=== PATIENT | male | born 2000 | race Caucasian/White ===

== ENCOUNTER 2021-11-15 07:23 | Day surgery (SDC) | payer MEDICAID ==
[~2021-11-15] VITALS: Ht 190.5 cm; Wt 124.8 kg
[~2021-11-15 07:23] MED LIST: BUPIVAcaine 0.5% inj/PF 30 ML ONE; NO HOME MEDS; famotidine 20mg tablet PO ONE; ringers solution, lacted 1,000 ML IV SCH
[2021-11-15] MEDS ORDERED: LIDOcaine 1% 30ml preserv. free vial ONE (07:28)
[2021-11-15 07:35] VITALS: BP 122/76
[2021-11-15] MEDS ORDERED: cefazolin/dext.iso 2gm/50ml 50 ML IV ONE (09:12)
[2021-11-15] MEDS ORDERED: famotidine 20mg tablet PO ONE (09:30)
[2021-11-15] MEDS ORDERED: MIDAZolam 1 MG/ML 5ML VIAL ONE (09:35)
[2021-11-15] MEDS ORDERED: fentaNYL/PF 50MCG/1 ML 2ML syringe ONE (09:35)
[2021-11-15] MEDS ORDERED: ketorolac trometh. 30mg/ml inj. ONE (09:36)
[2021-11-15] MEDS ORDERED: BUPIVAcaine 0.5% inj/PF 30 ml vial IJ ONE (10:43)
[2021-11-15 11:03] VITALS: BP 105/45
--- NOTE | 2021-11-15 11:03 | NUR ---
Received from OR via , accompanied by Anesthesiologist DR DUONG and report given by Anesthesiolgist. AWAKENS TO VOICE. VITALS STABLE. DRESSING DI. IRIS PAIN.
[2021-11-15 11:13] VITALS: BP 107/75
[2021-11-15 11:23] VITALS: BP 112/60
--- NOTE | 2021-11-15 11:43 | NUR ---
AWAKE AND ORIENTED. VITALS STABLE. DRESSING DI. IRIS PAIN. HOME WITH HIS DAD AT THIS TIME.
== END 2021-11-15 11:43 | disposition home or self-care (01) ==
LOC: PAS 07:23
PROVIDERS: ATTEND Orthopaedic Surgery Hand Surgery
DX: S62.390A Other fracture of second metacarpal bone, right hand, initial encounter for closed fracture (principal); E66.9 Obesity, unspecified; Z68.34 Body mass index [BMI] 34.0-34.9, adult; Z79.899 Other long term (current) drug therapy; Z79.82 Long term (current) use of aspirin; Z98.890 Other specified postprocedural states; Z20.822 Contact with and (suspected) exposure to COVID-19; X58.XXXA Exposure to other specified factors, initial encounter; Y93.89 Activity, other specified; Y92.89 Other specified places as the place of occurrence of the external cause; Y99.8 Other external cause status
CPT/HCPCS: 26746; 82948; 87635; A6222; C1713; C9803; J1885; J2250; J3010; J3490; J7030; J7120; S0020; Z7506; Z7512; A4215; A4618; A6449; A7000

== ENCOUNTER 2021-11-22 00:39 | Emergency (ER) | payer MEDICAID ==
[~2021-11-22] VITALS: Ht 190.5 cm; Wt 120.5 kg
[~2021-11-22 00:39] MED LIST changes: -BUPIVAcaine 0.5% inj/PF 30 ML ONE; -famotidine 20mg tablet PO ONE; -ringers solution, lacted 1,000 ML IV SCH
[2021-11-22] MEDS ORDERED: piperacillin/tazo 4.5gm/100ml 100 ML IV STA (01:28)
[2021-11-22] MEDS ORDERED: vancomycin/NS 1 GM ADD-VANTAGE 250 ML IV STA (01:28)
[2021-11-22] MEDS ORDERED: ondansetron/PF 4mg/2ml inj IV ONE (01:55)
[2021-11-22] MEDS ORDERED: morphine 4 MG/ML inj SYRINge IV ONE (01:55)
[2021-11-22 02:09] LABS: BASOPHILS % (AUTO) 0.2 % (0-1); EOSINOPHILS # (AUTO) 0.1 X10'3 (0-0.9); EOSINOPHILS % (AUTO) 1.3 % (0-6); HEMATOCRIT 41.5 % (42.0-52.0); HEMOGLOBIN 14.1 g/dl (14.0-17.9); LYMPHOCYTES # (AUTO) 1.5 X10'3 (1.1-4.8); LYMPHOCYTES % (AUTO) 14.9 % (21-51); MEAN CORPUSCULAR HEMOGLOBIN 31.2 PG (27.0-31.0); MEAN CORPUSCULAR HGB CONC 34.1 g/dL (33.0-36.5); MEAN CORPUSCULAR VOLUME 91.7 FL (78-98); MEAN PLATELET VOLUME 7.5 FL (7.4-10.4); MONOCYTES # (AUTO) 0.9 X10'3 (0-0.9); MONOCYTES % (AUTO) 8.7 % (2-12); NEUTROPHILS # (AUTO) 7.4 X10'3 (1.8-7.7); NEUTROPHILS % (AUTO) 74.9 % (42-75); PLATELET COUNT 221 X10'3 (140-440); RED BLOOD COUNT 4.52 X10'6 (4.70-6.10); RED CELL DISTRIBUTION WIDTH 13.2 % (11.5-14.5); WHITE BLOOD COUNT 9.8 X10'3 (4.5-11.0)
[2021-11-22 02:18] LABS: APTT 25 SECONDS (22-32)
[2021-11-22 02:29] LABS: ALBUMIN 3.7 G/DL (3.4-5.0); ANION GAP 8 (8-16); BLOOD UREA NITROGEN 14 MG/DL (7-18); BUN/CREATININE RATIO 13.9 (5.4-32.0); CALCIUM 8.8 MG/DL (8.5-10.1); CHLORIDE 104 MMOL/L (99-107); CREATININE 1.01 MG/DL (0.60-1.10); GLUCOSE 118 MG/DL (70-104); POTASSIUM 4.1 MMOL/L (3.5-5.1); SODIUM 139 MMOL/L (135-145); TOTAL CARBON DIOXIDE 26.7 MMOL/L (24-32); eGFR > 90 ML/MIN
[2021-11-22] MEDS ORDERED: CLIN300C71 PO (03:39)
[2021-11-22 03:51] VITALS: BP 149/70
[2021-11-26] MEDS ORDERED: LINE600T11 PO (15:13)
== END 2021-11-22 04:11 | disposition home or self-care (01) ==
LOC: ER 00:40
DX: G89.18 Other acute postprocedural pain (principal); L03.113 Cellulitis of right upper limb; M79.641 Pain in right hand; L02.511 Cutaneous abscess of right hand; Z98.890 Other specified postprocedural states; Z79.2 Long term (current) use of antibiotics
CPT/HCPCS: 36415; 73130; 80048; 83605; 85025; 85610; 85730; 87040; 87077; 87186; 96365; 96366; 96375; 99291; J2270; J2405; J2543; J3370

== ENCOUNTER 2021-11-23 15:28 | Emergency (ER) | payer MEDICAID ==
[~2021-11-23] VITALS: Ht 190.5 cm; Wt 120.5 kg
[~2021-11-23 15:28] MED LIST changes: +CLIN300C71 PO
[2021-11-23 15:35] VITALS: BP 140/97
--- NOTE | 2021-11-23 16:00 | NUR ---
dr. alvarado at bedside.
[2021-11-23 16:32] LABS: BASOPHILS % (AUTO) 0.3 % (0-1); EOSINOPHILS # (AUTO) 0.1 X10'3 (0-0.9); EOSINOPHILS % (AUTO) 0.8 % (0-6); HEMATOCRIT 44.9 % (42.0-52.0); HEMOGLOBIN 15.8 g/dl (14.0-17.9); LYMPHOCYTES % (AUTO) 14.2 % (21-51); MEAN CORPUSCULAR HEMOGLOBIN 31.9 PG (27.0-31.0); MEAN CORPUSCULAR HGB CONC 35.1 g/dL (33.0-36.5); MEAN CORPUSCULAR VOLUME 90.9 FL (78-98); MEAN PLATELET VOLUME 7.5 FL (7.4-10.4); MONOCYTES # (AUTO) 0.6 X10'3 (0-0.9); MONOCYTES % (AUTO) 7.9 % (2-12); NEUTROPHILS # (AUTO) 5.4 X10'3 (1.8-7.7); NEUTROPHILS % (AUTO) 76.8 % (42-75); PLATELET COUNT 251 X10'3 (140-440); RED BLOOD COUNT 4.94 X10'6 (4.70-6.10); RED CELL DISTRIBUTION WIDTH 13.1 % (11.5-14.5)
[2021-11-23 16:40] LABS: ALANINE AMINOTRANSFERASE 22 U/L (12-78); ALBUMIN 4.3 G/DL (3.4-5.0); ALBUMIN/GLOBULIN RATIO 1.3 (1.1-1.5); ALKALINE PHOSPHATASE 56 IU/L (46-116); ANION GAP 13 (8-16); ASPARTATE AMINO TRANSFERASE 12 U/L (10-37); BILIRUBIN,TOTAL 0.4 MG/DL (0.1-1.0); BLOOD UREA NITROGEN 7 MG/DL (7-18); BUN/CREATININE RATIO 9.2 (5.4-32.0); CALCIUM 9.6 MG/DL (8.5-10.1); CHLORIDE 102 MMOL/L (99-107); CREATININE 0.76 MG/DL (0.60-1.10); GLUCOSE 103 MG/DL (70-104); POTASSIUM 4.1 MMOL/L (3.5-5.1); SODIUM 142 MMOL/L (135-145); TOTAL CARBON DIOXIDE 27.4 MMOL/L (24-32); TOTAL PROTEIN 7.6 G/DL (6.4-8.2); eGFR > 90 ML/MIN
[2021-11-26] MEDS ORDERED: LINE600T11 PO (15:13)
== END 2021-11-23 17:31 | disposition home or self-care (01) ==
LOC: ER 15:29
DX: R79.9 Abnormal finding of blood chemistry, unspecified (principal); Z79.2 Long term (current) use of antibiotics; Z98.890 Other specified postprocedural states
CPT/HCPCS: 36415; 80053; 83605; 84145; 85025; 87040; 99283